=== PATIENT | male | born 1980 | race Caucasian/White ===

== ENCOUNTER 2018-08-28 15:05 | Inpatient (IN) | payer MEDICARE, MEDICAID ==
[~2018-08-28] VITALS: Ht 182.9 cm; Wt 102.5 kg
[~2018-08-28 15:05] MED LIST: ESCI10TA PO; LORA-250 PO
[2018-08-28] MEDS ORDERED: SODIUM CHLORIDE 0.9% 1,000 ML IV ONE (15:15)
[2018-08-28] MEDS ORDERED: LEVETIRACETAM 1000MG/100ML 100 ML IV ONE ×2 (15:15→15:45)
[2018-08-28] MEDS ORDERED: LORAZEPAM 2MG/ML CPJ IV ONE (15:45)
[2018-08-28] MEDS ORDERED: LORAZEPAM 2MG/ML CPJ ONE (15:55)
[2018-08-28 15:59] LABS: BASOPHILS % 0.6 % (0.0-2.0); EOSINOPHILS % 0.4 % (0.0-5.0); HEMATOCRIT. 42.6 % (42.0-52.0); HEMOGLOBIN. 14.8 g/dL (14.0-18.0); LYMPHOCYTES % 11.6 % (20.0-50.0); MEAN CORPUSCULAR HEMOGLOBIN 35.7 pg (28.0-32.0); MEAN CORPUSCULAR VOLUME 102.7 fL (80.0-94.0); MEAN PLATELET VOLUME 7.4 fl (7.4-10.4); MONOCYTES % 5.2 % (2.0-8.0); NEUTROPHILS % 82.2 % (40.0-76.0); PLATELET 243 x1000/uL (130-400); RED BLOOD CELL COUNT 4.15 mill/uL (4.7-6.1); RED CELL DISTRIBUTION WIDTH 13.4 % (11.6-14.6)
[2018-08-28] MEDS ORDERED: LEVETIRACETAM 1000MG/100ML 100 ML IV SCH (16:00)
[2018-08-28 16:03] LABS: CHLORIDE 103 mEq/L (98-107)
[2018-08-28 16:05] LABS: PROTHROMBIN TIME 10.1 sec (9.6-11.0)
[2018-08-28 16:07] LABS: ETHANOL BLOOD < 10 mg/dL
[2018-08-28 16:12] LABS: CREATINE KINASE 132 IU/L (39-308)
[2018-08-28 16:13] LABS: PHENOBARBITAL < 2.1 ug/mL (15.0-40.0)
[2018-08-28 16:19] LABS: CARBAMAZEPINE < 0.5 ug/mL (4-12)
[2018-08-28 16:25] LABS: HEPATITIS B SURFACE AB 7.6 mIU/mL
[2018-08-28 20:09] LABS: CLARITY URINE CLEAR (CLEAR); COLOR URINE YELLOW (YELLOW); KETONES URINE NEGATIVE (NEGATIVE); LEUKOCYTE ESTERASE URINE NEGATIVE (NEGATIVE); NITRITE URINE NEGATIVE (NEGATIVE); OCCULT BLOOD URINE NEGATIVE (NEGATIVE); PH URINE 6.5 (4.5-8.0); PROTEIN URINE TRACE (NEGATIVE); SPECIFIC GRAVITY URINE 1.022 (1.005-1.030); UROBILINOGEN URINE 0.2 E.U./dL (0.2-1.0)
[2018-08-28 20:18] LABS: *AMPHETAMINES SCREEN URINE NEGATIVE (NEGATIVE); *BARBITURATES SCREEN URINE NEGATIVE (NEGATIVE)
[2018-08-28 20:19] LABS: *BENZODIAZEPINES SCREEN URINE NEGATIVE (NEGATIVE); *COCAINE SCREEN URINE NEGATIVE (NEGATIVE); METHADONE URINE SCREEN NEGATIVE (NEGATIVE); OPIATES URINE SCREEN NEGATIVE (NEGATIVE); PHENCYCLIDINE URINE SCREEN NEGATIVE (NEGATIVE)
[2018-08-28 20:20] LABS: CANNABINOID URINE SCREEN PRESUMTIVE POSITIVE (NEGATIVE)
[2018-08-28] MEDS ORDERED: ONDANSETRON HCL 4MG/2ML INJ IV PRN (20:45)
[2018-08-28] MEDS ORDERED: MAGNESIUM/ALUMINUM HYDROXIDE/SIMETHICONE 30ML UDC PO PRN (20:45)
[2018-08-28] MEDS ORDERED: DIPHENHYDRAMINE 50MG/ML VIAL IV PRN (20:45)
[2018-08-28] MEDS ORDERED: LORAZEPAM 2MG/ML CPJ IV PRN (20:45)
[2018-08-28] MEDS ORDERED: CLONAZEPAM 1MG TABLET PO SCH (21:00)
[2018-08-28 22:00] VITALS: BP 121/56
[2018-08-28] MEDS ORDERED: FLUO10TA3 PO (22:12)
[2018-08-28] MEDS ORDERED: OXCA300T31 PO (22:12)
[2018-08-28] MEDS ORDERED: CLON1TAB PO (22:12)
[2018-08-28] MEDS ORDERED: LEVE1000 PO (22:12)
[2018-08-28] MEDS ORDERED: ARIP15TA7 PO (22:12)
[2018-08-28] MEDS: SODIUM CHLORIDE 0.9% INJ 3ML FLUSH IVF SCH (22:13)
[2018-08-28] MEDS: OXCARBAZEPINE 300MG TABLET PO SCH (22:55)
[2018-08-28] MEDS ORDERED: CLONAZEPAM 0.5MG TABLET PO SCH (23:00)
[2018-08-28 23:12] VITALS: BP 121/56
[2018-08-28] MEDS: LEVETIRACETAM 750 MG in SODIUM CHLORIDE 0.9% 100 ML IV SCH (23:49)
[2018-08-29] VITALS (10 sets, daily range): BP systolic 92–124; BP diastolic 50–84
[2018-08-29] MEDS: ACETAMINOPHEN 325MG TABLET PO PRN ×2 (02:42→10:03)
[2018-08-29] MEDS: SODIUM CHLORIDE 0.9% INJ 3ML FLUSH IVF SCH ×2 (05:16→13:48)
[2018-08-29 06:48] LABS: BASOPHILS % 0.4 % (0.0-2.0); HEMATOCRIT. 37.5 % (42.0-52.0); HEMOGLOBIN. 13.3 g/dL (14.0-18.0); LYMPHOCYTES % 16.5 % (20.0-50.0); MEAN CORPUSCULAR HEMOGLOBIN 36.2 pg (28.0-32.0); MEAN CORPUSCULAR VOLUME 102.2 fL (80.0-94.0); MEAN PLATELET VOLUME 8.1 fl (7.4-10.4); MONOCYTES % 7.3 % (2.0-8.0); NEUTROPHILS % 75.8 % (40.0-76.0); PLATELET 221 x1000/uL (130-400); RED BLOOD CELL COUNT 3.67 mill/uL (4.7-6.1); RED CELL DISTRIBUTION WIDTH 13.3 % (11.6-14.6)
[2018-08-29 07:13] LABS: CHLORIDE 105 mEq/L (98-107)
[2018-08-29 07:26] LABS: PHOSPHORUS 3.8 mg/dL (2.5-4.9)
[2018-08-29] MEDS ORDERED: FLUOXETINE HCL 10 MG CAPSULE PO SCH (09:00)
[2018-08-29] MEDS ORDERED: ARIPIPRAZOLE 5MG TABLET PO SCH (09:00)
[2018-08-29] MEDS: OXCARBAZEPINE 300MG TABLET PO SCH (10:04)
[2018-08-29] MEDS: LEVETIRACETAM 750 MG in SODIUM CHLORIDE 0.9% 100 ML IV SCH (10:08)
== END 2018-08-29 17:00 | disposition home or self-care (01) | DRG 101 ==
LOC: ER 15:05 → 3WST 17:27 → ENRESERV 20:34
PROVIDERS: ADMIT Internal Medicine; ATTEND Internal Medicine
DX: G40.909 Epilepsy, unspecified, not intractable, without status epilepticus (principal); Z94.81 Bone marrow transplant status; S01.511A Laceration without foreign body of lip, initial encounter; W18.39XA Other fall on same level, initial encounter; Z72.0 Tobacco use; Z83.3 Family history of diabetes mellitus; Z85.72 Personal history of non-Hodgkin lymphomas; Z86.61 Personal history of infections of the central nervous system; Y93.89 Activity, other specified; Y92.89 Other specified places as the place of occurrence of the external cause; Y99.8 Other external cause status; Z88.2 Allergy status to sulfonamides
CPT/HCPCS: 36415; 70486; 71045; 80156; 80165; 80184; 80185; 80305; 80320; 82550; 83735; 84100; 84443; 86703; 86705; 86706; 86803; 96374; 99285; J1953; J2060; J2405; J7030; J7050; G0480